=== PATIENT | female | born 1975 | race Caucasian/White ===

== ENCOUNTER 2023-10-20 15:35 | Emergency (ER) | payer BC, SELFPAY ==
[2023-10-20 15:40] VITALS: BP 141/78; PULSE 88; TEMP 37; O2SAT 99; BMI 41.2
--- NOTE | 2023-10-20 15:52 | PC.NURSE ---
left side neck swelling, pt able to control secretions at tis time
[2023-10-20 15:53] VITALS: O2SAT 99
--- NOTE | 2023-10-20 15:55 | XR_ITS ---
The [address] [address] Patient Name: JOANA FITZGERALD MRN: [id number] date: 1975 Sex: F Assigned Patient Location: ER Current Patient Location: ED.MAIN Accession/Order Number: [id number] Exam Date: 10/20/2023 16:35 Report Date: 10/20/2023 17:10 At the request of: TOO HOWE Procedure: XR chest 1V EXAM: XR chest 1V HISTORY: SOB COMPARISON: None. TECHNIQUE: AP portable upright chest x-ray FINDINGS: Lungs without infiltrate or edema. Lung bases assessment limited by overlying soft tissues. Small linear density left lung base most suggestive of atelectasis. Heart size magnified felt to be normal for technique. No pleural effusion or pneumothorax XR/XR chest 1V IMPRESSION: No acute findings, no infiltrate or edema. Electronically authenticated by: DORIS SCHMITT Date: 10/20/2023 17:10
--- NOTE | 2023-10-20 15:59 | ED_ITS ---
HPI HPI - General Adult General Chief complaint: Dental/Oral Stated complaint: Dental Shortness of breath Time Seen by Provider: 10/20/23 15:39 Source: patient Mode of arrival: walk-in History of Present Illness HPI narrative: Patient is a 48-year-old female presents to the ER with concerns of dental abscess, pain and swelling. Patient reports moderate to significant pain in the left lower jaw with swelling that started on Saturday. Patient has known issues with a tooth after attempt at cavity repair, patient consulted with a dental specialist for possible root canal but decided to hold as her pain symptoms stopped. Patient notes this is the first time she has had swelling and pain since that visit. Patient has slight wheezing, uses an albuterol inhaler. She is without fever but currently in the middle of a 21-day Augmentin prescription for chronic sinusitis awaiting specialist eval with ENT. Patient concerned with swelling starting during antibiotic use. Patient states she has cut back on her smoking since symptoms have developed. Patient reports I feel miserable. Patient notes pain with swallowing but is able to swallow without difficulty. Most discomfort localized to tooth and dental abscess. Location: Reports mouth Severity: moderate Pain Consistency: Reports constant Relieving factors: Reports none Exacerbating factors: Reports none Treatments prior to arrival: Reports NSAID Related Data Home Medications ?Medication ?Instructions ?Recorded ?Confirmed albuterol sulfate 90 mcg/actuation 2 puff inhalation Q6H PRN 10/20/23 10/20/23 aerosol inhaler shortness of breath or wheezing amoxicillin 875 mg-potassium 1 tab PO Q12H 10/20/23 10/20/23 clavulanate 125 mg tablet bupropion HCl 300 mg 24 hr tablet, 300 mg PO QAM 10/20/23 10/20/23 extended release fluoxetine 20 mg capsule 20 mg PO QAM 10/20/23 10/20/23 fluticasone propionate 50 2 spray intranasal DAILY 10/20/23 10/20/23 mcg/actuation nasal spray,suspension ibuprofen 800 mg tablet 800 mg PO Q8H PRN pain 10/20/23 10/20/23 rosuvastatin 20 mg tablet 20 mg PO DAILY 10/20/23 10/20/23 Previous Rx's ?Medication ?Instructions ?Recorded clindamycin HCl 300 mg capsule 300 mg PO Q6H 7 days #28 caps 10/20/23 ibuprofen 800 mg tablet 800 mg PO TID PRN pain #30 tabs 10/20/23 Allergies Allergy/AdvReac Type Severity Reaction Status Date / Time adhesive tape Allergy Severe Verified 10/20/23 15:46 bismuth subsalicylate Allergy Severe Verified 10/20/23 15:46 [From Pepto-Bismol] Opioid HPI Opioid Management Most Recent Opioid Data: Last Pain Scale 10 10/20/23 16:39 Last MAR Pain Assessment 10/20/23 16:39 Review of Systems ROS Constitutional Denies: fever or chills Eyes Denies: change in vision Ears, nose, mouth, and throat Reports: throat pain, neck pain, difficulty swallowing and mouth pain Cardiovascular Denies: chest pain, palpitations or edema Respiratory Reports: cough and wheezing; Denies: shortness of breath Gastrointestinal Denies: abdominal pain or nausea Musculoskeletal Denies: back pain Integumentary/Breast Denies: rash Neurological Denies: headache, numbness in extremities or behavioral changes Psychiatric Denies: anxiety Exam Narrative Exam Narrative: Nurses notes reviewed and patient is noted to be non-hypoxic. General: The patient is comfortable, alert and oriented x3, well appearing, non toxic in no apparent distress. Head: Atraumatic and normocephalic. Eyes: Normal conjunctiva, no exudates. ENT: The oropharynx is normal. No pharyngeal erythema, uvular edema, tonsillar exudates, asymmetry or trismus. Uvula is midline. Mouth is normal to inspection With the exception of a pain on percussion of the tooth # 17 ( left lower rear molar) evidence of dental filing in tooth and abscess. There is evidence of facial asymmetry or abscess formation palpable left lower rear molar. Floor of the mouth is soft. No tenderness in the submental + tender to left submandibular space wiht palpable abscess. No tongue elevation or deviation. The patient has no evidence of gingivitis, ANUG or other acute pathology. Airway is patent. Neck: The neck demonstrates normal range of motion. No meningeals signs are present. No stridor. No masses or lymphandenopathy noted. Respiratory: No acute distress, lungs noted for + experatory wheezing in all san. No stridor or retractions are noted. Cardiovascular: Regular rate and rhythm Skin: The skin exam shows no evidence of rashes Neuro: Alert and oriented x4, normal speech Lymphatic: + anterior cervical lymphadenopathy likely reactive Constitutional Vital Signs, click to edit/add: Last Vital Signs Temp 98.6 F 10/20/23 15:40 Pulse 88 10/20/23 15:40 Resp 18 10/20/23 15:40 BP 141/78 10/20/23 15:40 Pulse Ox 99 10/20/23 15:53 O2 Del Method Room Air 10/20/23 15:53 Course Vital Signs Vital signs: Vital Signs Temperature 98.6 F 10/20/23 15:40 Pulse Rate 88 10/20/23 15:40 Respiratory Rate 18 10/20/23 15:40 Blood Pressure 141/78 10/20/23 15:40 Pulse Oximetry 99 10/20/23 15:40 Oxygen Delivery Method Room Air 10/20/23 15:40 Temperature 98.6 F 10/20/23 15:40 Pulse Rate 88 10/20/23 15:40 Respiratory Rate 18 10/20/23 15:40 Blood Pressure 141/78 10/20/23 15:40 Pulse Oximetry 99 10/20/23 15:53 Oxygen Delivery Method Room Air 10/20/23 15:53 Medical Decision Making MDM Narrative Medical decision making narrative: Patient reports compliance with her current Augmentin prescription started on 10/10-states she is prescribed the medication for 21 days. Patient still taking only missing 1 dose at night. Patient has development of left Lower rear molar dental abscess, reactive swelling. She is able to speak in a clear voice and swallow easily despite pain. Patient has established care with a oral surgeon whom she plans to call Saturday again but has left messages since Saturday to discuss definitive treatment. LMP 1st of month.. + sexually acitve, HCG ordered. Rx for Clinda 900mg IV, Labs, Topical dental analgesia. Toradol IV and 1G tylenol. When asked about difficulty swallowing, pt advised she can swallow but feels misserable. Tetanus will be updated. Attempted draining dental abscess made with patient's verbal consent, patient reports feeling better after treatments here in the ER, she is tolerating p.o. liquid. She will take yogurt with discussion of probiotics given her antibiotic use long-term. Patient will contact her PCP to discuss ongoing treatment of Augmentin, we recommend clindamycin given her dental abscess which is refractory to this antibiotic. She would not likely benefit from being on both antibiotics. Patient will return to the ER if symptoms worsen, she intends to establish care with her dentist again Saturday or Saturday of this week. We discussed need to return to the ER if symptoms worsen given conservative measures, given clinical exam, treatment I do not feel CT of The neck is indicated at this time with radiation and treatment/exam discussed. wheeze improved with tx, recommend cont with home inhaler. cxr neg for infiltrate. The patient is to followup with the dentist/ oral surgeon in 1-2 days or to return to the emergency department should any of the signs or symptoms worsen or new symptoms develop. Patient had questions answered. The patient agrees with the following Diagnosis and Treatment plan and the patient will be discharged home. Lab Data Lab results reviewed: Yes I reviewed the patient's lab results Labs: Lab Results 10/20/23 Range/Units 16:10 WBC 15.9 H (4.0-11.0) 10^3/uL RBC 4.66 (4.20-5.40) 10^6/uL Hgb 13.3 (12.0-16.0) g/dL Hct 40.9 (36.0-48.0) % MCV 87.8 (81.0-99.0) fL MCH 28.5 (26.7-34.0) pg MCHC 32.5 (29.9-35.2) g/dL RDW 13.2 (11.0-15.0) % Plt Count 371 (150-450) 10^3/uL MPV 9.7 (9.5-13.5) fL Neut % (Auto) 66.4 (43.0-75.0) % Lymph % (Auto) 14.6 L (20.5-60.0) % Walsh % (Auto) 8.3 (1.7-12.0) % Eos % (Auto) 9.2 H (0.9-7.0) % Baso % (Auto) 0.6 (0.2-2.0) % Neut # (Auto) 10.6 H (1.4-6.5) 10^3/uL Lymph # (Auto) 2.3 (1.2-3.8) 10^3/uL Walsh # (Auto) 1.3 H (0.3-0.8) 10^3/uL Eos # (Auto) 1.5 H (0.0-0.7) 10^3/uL Baso # (Auto) 0.1 (0.0-0.1) 10^3/uL Abs Immat Gran (auto) 0.14 H (0.00-0.03) 10^3/uL Imm/Tot Granulo (auto) 0.9 H (0.0-0.5) % Sodium 138 (136-145) mmol/L Potassium 4.3 (3.5-5.1) mmol/L Chloride 105 (98-107) mmol/L Carbon Dioxide 24.2 (21.0-32.0) mmol/L Anion Gap 13.1 BUN 11.0 (7.0-18.0) mg/dL Creatinine 0.69 (0.55-1.02) mg/dL Est GFR ( Amer) >60 (>=60) Est GFR (Non-Af Amer) >60 (>=60) BUN/Creatinine Ratio 15.9 Glucose 91 (74-106) mg/dL Calcium 9.3 (8.5-10.1) mg/dL Total Bilirubin 0.2 (0.2-1.0) mg/dL AST 23 (15-37) U/L ALT 35 (14-59) U/L Alkaline Phosphatase 125 H (46-116) U/L Total Protein 7.1 (6.4-8.2) g/dL Albumin 3.1 L (3.4-5.0) g/dL Globulin 4.0 g/dL Albumin/Globulin Ratio 0.8 Serum HCG, Qual Negative (NEGATIVE) Imaging Data Chest x-ray: Radiologist's impression: ITS Impressions Chest X-Ray 10/20/23 15:55 IMPRESSION: No acute findings, no infiltrate or edema. Electronically authenticated by: DORIS SCHMITT Date: 10/20/2023 17:10 Discharge Plan Discharge Stand Alone Forms: Portal Instructions Chief Complaint: Dental/Oral Clinical Impression: Dental abscess, Wheezing Patient Disposition: Home, Self-Care Time of Disposition Decision: 17:29 Condition: Good Prescriptions / Home Meds: New clindamycin HCl 300 mg capsule 300 mg PO Q6H 7 Days Qty: 28 0RF ibuprofen 800 mg tablet 800 mg PO TID PRN (Reason: pain) Qty: 30 0RF No Action albuterol sulfate 90 mcg/actuation HFA aerosol inhaler 2 puff INHALATION Q6H PRN (Reason: shortness of breath or wheezing) amoxicillin-pot clavulanate 875-125 mg tablet 1 tab PO Q12H bupropion HCl 300 mg tablet extended release 24 hr 300 mg PO QAM fluoxetine 20 mg capsule 20 mg PO QAM fluticasone propionate 50 mcg/actuation spray,suspension 2 spray INTRANASAL DAILY ibuprofen 800 mg tablet 800 mg PO Q8H PRN (Reason: pain) rosuvastatin 20 mg tablet 20 mg PO DAILY Print Language: Wolof Instructions: Dental Abscess (ED) Additional Instructions: [email or web address] Dr[facility] Lenin Garcia, DDS [phone] ( call Saturday for appt) [address] [place] [address] Notify your PCP that you have been started on clindamycin for dental abscess that developed while on augmentin.. ( recommend holding augmentin)- take yogurt with antibiotics to minimize side effect ( probiotics for bowel health) Referrals: MARZENA COOPER [Primary Care Provider] - 1 week Procedures ED Procedure Instructions Procedures Procedures: Discussed attempt at drainage of dental abscess-patient consenting, family at bedside ( pt verbalized definitive tx is seeing dental specialist) Topical dental analgesia applied to the left rear molar buccal surface, adequate topical anesthesia achieved, removed. 20-gauge needle used to poke and make an incision along the pointy part of the abscess, scant purulent material expressed. Patient reports noting relief, irrigating mouth with hemostasis achieved. Neruovasc intact s/p tx.
[2023-10-20 16:21] LABS: Basophils Absolute Auto 0.1 10^3/uL (0.0-0.1); Basophils Percent Auto 0.6 % (0.2-2.0); Eosinophils Absolute Auto 1.5 10^3/uL (0.0-0.7); Eosinophils Percent Auto 9.2 % (0.9-7.0); Hematocrit 40.9 % (36.0-48.0); Hemoglobin 13.3 g/dL (12.0-16.0); Immature Granulocytes Abs Auto 0.14 10^3/uL (0.00-0.03); Immature Granulocytes Pct Auto 0.9 % (0.0-0.5); Lymphocytes Absolute Auto 2.3 10^3/uL (1.2-3.8); Lymphocytes Percent Auto 14.6 % (20.5-60.0); Mean Corpuscular HGB Conc 32.5 g/dL (29.9-35.2); Mean Corpuscular Hemoglobin 28.5 pg (26.7-34.0); Mean Corpuscular Volume 87.8 fL (81.0-99.0); Mean Platelet Volume 9.7 fL (9.5-13.5); Monocytes Absolute Auto 1.3 10^3/uL (0.3-0.8); Monocytes Percent Auto 8.3 % (1.7-12.0); Neutrophils Absolute Auto 10.6 10^3/uL (1.4-6.5); Neutrophils Percent Auto 66.4 % (43.0-75.0); Platelet Count 371 10^3/uL (150-450); Red Blood Count 4.66 10^6/uL (4.20-5.40); Red Cell Distribution Width 13.2 % (11.0-15.0); White Blood Count 15.9 10^3/uL (4.0-11.0)
[2023-10-20] MEDS: BENZOCAINE 30 ML, lidocaine HCL 15 ML MM (16:24)
[2023-10-20] MEDS: ACETAMINOPHEN 500 MG TABLET 1000 MG PO (16:24)
[2023-10-20] MEDS: CLINDAMYCIN PHOSPHATE/D5W 900 MG/50 ML PIGGYBACK 100 MG IV (16:25)
[2023-10-20 16:28] LABS: HCG Qualitative NEGATIVE (NEGATIVE)
[2023-10-20 16:34] LABS: Alanine Aminotransferase 35 U/L (14-59); Albumin Globulin Ratio 0.8; Albumin Level 3.1 g/dL (3.4-5.0); Alkaline Phosphatase 125 U/L (46-116); Anion Gap 13.1; Aspartate Amino Transferase 23 U/L (15-37); BUN Creatinine Ratio 15.9; Bilirubin Total 0.2 mg/dL (0.2-1.0); Calcium 9.3 mg/dL (8.5-10.1); Carbon Dioxide 24.2 mmol/L (21.0-32.0); Chloride 105 mmol/L (98-107); Estimated GFR (African America >60 (>=60); Estimated GFR (Non-African Ame >60 (>=60); Glucose 91 mg/dL (74-106); Potassium 4.3 mmol/L (3.5-5.1); Sodium 138 mmol/L (136-145); Total Protein 7.1 g/dL (6.4-8.2)
[2023-10-20] MEDS: KETOROLAC TROMETHAMINE 30 MG/ML VIAL IVP (16:39)
[2023-10-20] MEDS: ADACEL DIPH,PERTUSS(ACELL),TET VAC/PF 0.5 ML ADULT SYRINGE IM (16:40)
[2023-10-20] MEDS: IPRATROPIUM/ALBUTEROL SULFATE 3 ML AMPUL.NEB IH (17:19)
== END 2023-10-20 17:54 | disposition home or self-care (01) ==
PROVIDERS: Personal Emergency Response Attendant; Emergency Provider Emergency Medicine; PCP Nurse Practitioner
DX: K04.7 Periapical abscess without sinus (principal); R06.2 Wheezing; Z79.899 Other long term (current) drug therapy; Z23 Encounter for immunization
CPT/HCPCS: 36415; 71045; 80053; 84703; 85025; 90471; 90715; 94640; 96365; 96375; 99285